=== PATIENT | female | born 1985 | race Caucasian/White ===

== ENCOUNTER → 2020-07-20 10:18 | Outpatient (CLI) | payer BC | END | disposition home or self-care (01) | LOC: D.LAB 10:18 | DX: Z32.00 Encounter for pregnancy test, result unknown (principal) ==

== ENCOUNTER → 2020-07-22 09:36 | Outpatient (CLI) | payer BC | END | disposition home or self-care (01) | LOC: D.LAB 09:34 | DX: Z32.00 Encounter for pregnancy test, result unknown (principal) ==

== ENCOUNTER → 2020-07-28 08:06 | Outpatient (CLI) | payer BC | END | disposition home or self-care (01) | LOC: D.LAB 08:06 | DX: Z32.00 Encounter for pregnancy test, result unknown (principal) ==

== ENCOUNTER 2021-02-10 09:52 | Outpatient (CLI) | payer BC ==
[2021-02-10] MEDS ORDERED: ZYRTEC10 MG PO (09:58)
[2021-02-10] MEDS ORDERED: PROTONIX40 MG PO (10:02)
== END 2021-02-10 10:27 | disposition home or self-care (01) ==
LOC: D.LDO 09:52
PROVIDERS: ATTEND Student in an Organized Health Care Education/Training Program
DX: O35.9XX0 Maternal care for (suspected) fetal abnormality and damage, unspecified, not applicable or unspecified (principal)

== ENCOUNTER → 2021-02-15 14:02 | Outpatient (CLI) | payer BC ==
[~2021-02-15 14:02] MED LIST: PROTONIX40 MG PO; ZYRTEC10 MG PO
== END | disposition home or self-care (01) ==
LOC: D.LDO 14:02
PROVIDERS: ATTEND Student in an Organized Health Care Education/Training Program
DX: O26.899 Other specified pregnancy related conditions, unspecified trimester (principal)

== ENCOUNTER 2021-02-22 09:00 | Outpatient (CLI) | payer BC | END 2021-02-22 09:45 | disposition home or self-care (01) | LOC: D.LDO 09:00 | PROVIDERS: ATTEND Student in an Organized Health Care Education/Training Program | DX: O35.9XX0 Maternal care for (suspected) fetal abnormality and damage, unspecified, not applicable or unspecified (principal) ==

== ENCOUNTER 2021-03-01 08:25 | Outpatient (CLI) | payer BC | END 2021-03-01 09:10 | disposition home or self-care (01) | LOC: D.LDO 08:25 | PROVIDERS: ATTEND Student in an Organized Health Care Education/Training Program | DX: O35.9XX0 Maternal care for (suspected) fetal abnormality and damage, unspecified, not applicable or unspecified (principal) ==

== ENCOUNTER 2021-03-08 10:10 | Outpatient (CLI) | payer BC | END 2021-03-08 11:17 | disposition home or self-care (01) | LOC: D.LDO 10:10 | PROVIDERS: ATTEND Student in an Organized Health Care Education/Training Program | DX: O35.9XX0 Maternal care for (suspected) fetal abnormality and damage, unspecified, not applicable or unspecified (principal) ==

== ENCOUNTER 2021-03-10 06:03 | Inpatient (IN) | payer BC ==
[2021-03-10] VITALS (13 sets, daily range): BP systolic 103–142; BP diastolic 50–72; Ht 160 cm; Wt 71.7 kg
[~2021-03-10] VITALS: Ht 160 cm; Wt 71.7 kg
[2021-03-10 06:51] LABS: HEMATOCRIT 33.5 % (36.0-48.0); HEMOGLOBIN 10.8 g/dL (12-16); MCH 25.5 pg (26.0-34.0); MCHC 32.2 g/dL (31.0-37.0); MCV 79.2 fL (80.0-100.0); MEAN PLATELET VOLUME 12.2 fL (7.4-10.4); RBC 4.23 10x6/uL (4.00-5.40); WBC 8.8 10x3/uL (4.8-10.8)
[2021-03-10 06:59] LABS: UDS - AMPHET NEGATIVE QUAL (NEGATIVE); UDS - BARB NEGATIVE QUAL (NEGATIVE); UDS - BENZO NEGATIVE QUAL (NEGATIVE); UDS - COCAINE NEGATIVE QUAL (NEGATIVE); UDS - OPIATE NEGATIVE QUAL (NEGATIVE); UDS - PCP NEGATIVE QUAL (NEGATIVE); UDS - THC NEGATIVE QUAL (NEGATIVE)
[2021-03-10 07:00] LABS: BILIRUBIN NEGATIVE (NEGATIVE); KETONE 1+ mg/dL (NEGATIVE); NITRITE NEGATIVE (NEGATIVE); UROBILINOGEN NORMAL mg/dL (< 2)
--- NOTE | 2021-03-10 09:42 | NUR ---
REC'D TO ROOM FROM PACU AA&OX4. VSS. FUNDUS BOGGY MIDLINE AND U1, 3 HALF DOLLAR SIZED CLOTS EXPRESSED WITH MASSAGE AND FUNDUS FIRMED FOLLOWING CLOT EXPULATION AND MASSAGE. RESP REGULAR AND UNLABORED, NO S/S OF DISTRESS NOTED. BREATH SOUNDS CLEAR AND EQUAL BILATERALLY. BOWELS SOUNDS HYPOACTIVE X4. LOWER TRANSVERSE ABD INCISION WELL APPROXIMATED WITH GLUE INTACT. NO DRAINAGE NOTED. TENORIO DRAINING TO BEDSIDE DRAINAGE SYSTEM, STAT LOCK PLACED, 300 MLS CLEAR LIGHT YELLOW URINE EMPTIED. SCD'S ON BLE. 1+ BLE EDEMA NOTED. INCENTIVE SPIROMETER PROVIDED, EDUCATED ON USE WITH RETURN DEMO X10 WITH GOOD EFFORT. ICE PACK PROVIDED. PERICARE DONE, TOWELS PADS AND CHUX CHANGED. POC DISCUSSED WITH PT AND SPOUSE. UPDATED ON INFANT STATUS PER NBN STAFF. BED IN LOW POSITION WITH SRUP X2. CALL LIGHT AND PHONE WITHIN REACH. WILL CONTINUE TO MONITOR. O
--- NOTE | 2021-03-10 09:57 | NUR ---
VSS. FUNDUS FIRM, MIDLINE AND U2 WITH SMALL AMT RUBRA LOCHIA, NO CLOTS NOTED.
--- NOTE | 2021-03-10 10:49 | NUR ---
NICU TRANSPORT TO BEDSIDE WITH INFANT FOR PT VIEWING AND BRIEF BONDING.
--- NOTE | 2021-03-10 11:24 | NUR ---
C/O ABD AND INCISIONAL DISCOMFORT, MEDICATED PER EMAR. FUNDUS BOGGY BUT FIRMS WITH MASSAGE, SMALL TO MODERATE AMT RUBRA LOCHIA NOTED, NO CLOTS. VSS. DENIES NEEDS. SPOUSE AT BEDSIDE, SUPPORTIVE AND ATTENTIVE TO PT NEEDS. BED IN LOW POSITION WITH SRUP X2. CALL LIGHT AND PHONE WITHIN REACH. I&O DONE PER FLOWSHEET.
--- NOTE | 2021-03-10 11:36 | NUR ---
CALLS VIA CALL LIGHT C/O NAUSEA. ZOFRAN GIVEN PER ORDER AND PT REQUEST. 50 MLS EMESIS NOTED IN EMESIS BAG. SPOUSE REMAINS AT BEDSIDE, SUPPORTIVE AND ATTENTIVE. BED IN LOW POSITION WITH SRUP X2. CALL LIGHT AND PHONE WITHIN REACH.
--- NOTE | 2021-03-10 11:54 | NUR ---
PAIN REASSESSMENT DONE. DENIES PAIN AND NEEDS.
[2021-03-10 12:12] LABS: BASOPHILS 0.1 % (0-2); EOSINOPHILS 0.1 % (0-7); HEMATOCRIT 27.5 % (36.0-48.0); HEMOGLOBIN 8.8 g/dL (12-16); IMMATURE GRANULOCYTES 0.5 % (0-5); LYMPHOCYTE ABS# 1.31 10x3/uL (1.18-3.74); LYMPHOCYTES 12.3 % (15-50); MCH 25.3 pg (26.0-34.0); MEAN PLATELET VOLUME 11.6 fL (7.4-10.4); MONOCYTES 6.6 % (2-11); NEUTROPHIL ABS# 8.54 10x3/uL (1.56-6.13); NEUTROPHILS 80.4 % (40-80); PLATELET COUNT 194 10x3/uL (130-400); RBC 3.48 10x6/uL (4.00-5.40); RDW 12.8 % (11.5-14.5); WBC 10.6 10x3/uL (4.8-10.8)
--- NOTE | 2021-03-10 13:41 | NUR ---
BREAST PUMP PROVIDED AND INSTRUCTED ON USE, DEMONSTRATES UNDERSTANDING. PERICARE DONE. VSS. FUNDUS FIRM, MIDLINE AND U2 WITH SMALL AMT RUBRA LOCHIA, NO CLOTS NOTED. PAIN 1-2/10, DENIES NEED FOR INTERVENTION AT THIS TIME. SCD'S ON BLE. INCENTIVE SPIROMETER DONE X10 WITH GOOD EFFORT. ICE WATER, SPRITE, AND CHICKEN BROTH PROVIDED. PT REPORTS OCCASIONAL "WAVES" OF NAUSEA CONTINUING. BED IN LOW POSITION WITH SRUP X2. CALL LIGHT AND PHONE WITHIN REACH.
--- NOTE | 2021-03-10 14:51 | NUR ---
VSS. FUNDUS FIRM, MIDLINE AND U2 WITH SMALL AMT RUBRA LOCHIA, NO CLOTS NOTED. C/O ABD AND INCISIONAL DISCOMFORT. TORADOL GIVEN. PAIN REGIMAN DISCUSSED WITH PT, REQUESTS ZOFRAN WHEN AVAILABLE THEN TO TRANSITION TO PO MEDS. EBM LABELED AND STORED. DENIES ADDITIONAL NEEDS.
--- NOTE | 2021-03-10 15:34 | NUR ---
VSS. PAIN NOW 2-02/08. ZOFRAN GIVEN PER ORDER. DENIES ADDITIONAL NEEDS. WATCHING ON VIDEO FEED. BED IN LOW POSITION WITH SRUP X2. CALL LIGHT AND PHONE WITHIN REACH.
--- NOTE | 2021-03-10 16:28 | NUR ---
PUMPING AT THIS TIME. C/O ABD CRAMPING AND INCISIONAL DISCOMFORT, MEDICATED PER EMAR. PT REQUESTS PO MEDS, STATING "I THINK THE IV STUFF MADE ME NAUSEATED AND I FEEL A LOT BETTER RIGHT NOW SINCE THE LAST DOSE OF ZOFRAN." FF, MIDLINE AND U2 WITH SCANT RUBRA LOCHIA, NO CLOTS NOTED. ASSISTANCE PROVIDED WITH PUMPING D/T POOR SEAL. DENIES ADDITIONAL NEEDS. CONTINUES TO WATCH INFANT ON VIDEO FEED VIA HER CELL PHONE. POC DISCUSSED AND PT REQUEST TENORIO BE D/C'D WHEN SHE COMPLETED PUMPING. BED IN LOW POSITION WITH SRUP X2. CALL LIGHT AND PHONE WITHIN REACH.
--- NOTE | 2021-03-10 17:34 | NUR ---
CONVERSING ON CELL PHONE. PAIN 03/11. STATES THAT SHE WILL CALL VIA CALL LIGHT WHEN DONE FOR TENORIO REMOVAL. DENIES NEEDS. BED IN LOW POSITION WITH SRUP X2. CALL LIGHT AND PHONE WITHIN REACH.
--- NOTE | 2021-03-10 18:04 | NUR ---
CALLS VIA CALL LIGHT. TENORIO D/C'D WITH 310 MLS YELLOW URINE PRESENT. UP TO BR. PERICARE DONE PER PT, PADS AND PANTIES APPLIED. GOWN CHANGED. PERSONAL ABD BINDER PLACED PER PT REQUEST. L A/C PIV SL. ORAL CARE PER PT. STEADY GAIT NOTED. BACK TO BED. SCD'S ON. BED IN LOW POSITION WITH SRUP X2. CALL LIGHT AND PHONE WITHIN REACH. EBM LABELED AND STORED.
--- NOTE | 2021-03-10 19:14 | NUR ---
PT AAOX4, VSS, AFEBRILE, ALERT AND CONVERSANT, SMILING, REVIEWED POC THIS PM; PM ASSESSMENT COMPLETED. C/L AND ALL PERSONAL BELONGINGS WITHIN EASY REACH, SR UP X2, BED IN LOW POSITION, SCDS ON AND FUNCTIONING TO B LE, LEFT A/C SL INTACT AND SECURED WITH CLEAR TAPE, ALL QUESTIONS ANSWERED WITH PT STATING UNDERSTANDING. ENCOURAGED TO NOTIFY THIS RN WHEN NEEDING TO GET OOB TO BR. WILL MONITOR.
--- NOTE | 2021-03-10 20:00 | NUR ---
PT ASSISTED OOB TO BR, VOIDED 300ML URINE TO SPECIPAN, REVIEWED PERICARE INSTRUCTIONS WITH PT DEMONSTRATING PROPER TECHNIQUE; NOW AMBULATORY IN HALLS WITH SPOUSE FOR SUPPORT, NAD NOTED. WILL MONITOR.
--- NOTE | 2021-03-10 20:52 | NUR ---
DR VELASQUEZ NOTIFIED WITH PT REQUEST OR PRN SLEEP MED TONIGHT; ORDERS RECEIVED AND NOTED.
--- NOTE | 2021-03-10 21:15 | NUR ---
PT OOB TO BR, VOIDED 900ML PALE YELLOW URINE, PERICARE PER PT, ASSISTED BACK TO BED, DENIES NEEDS/CONCERNS, WILL MONITOR.
--- NOTE | 2021-03-10 22:00 | NUR ---
ROUNDS COMPLETED, PAIN REASSESSMENT DONE, PT DENIES CONCERNS/NEEDS AT PRESENT, PT OOB TO BR, STEADY GAIT, SAFETY PRECAUTIONS REVIEWED WITH PT, PT STATES UNDERSTANDING. NO CHANGE FROM PM ASSESSMENT, WILL MONITOR.
--- NOTE | 2021-03-10 23:32 | NUR ---
ROUNDS COMPLETED, PRN HS MED GIVEN REQUESTED PER PT, ASSISTED OOB TO BR, VOIDS QS WITHOUT DIFFICULTY, LOCHIA RUBRA SCANT WITH NO CLOTS, VSS, AFEBRILE, REVIEWED POC THIS PM, PT STATES UNDERSTANDING, C/L IN EASY REACH OF PT, SR UP X2 BED IN LOW POSITION, BED BRAKES LOCKED, CUPS OF ICE AND ICE WATER PROVIDED REQUESTED, NO OTHER NEEDS VOICED. WILL MONITOR.
--- NOTE | 2021-03-11 01:30 | NUR ---
ROUNDS COMPLETED, PT RESTING WITH EYES CLOSED, RESP EVEN AND UNLABORED, NAD NOTED, WILL CONTINUE TO MONITOR.
[2021-03-11 03:06] VITALS: BP 119/56
--- NOTE | 2021-03-11 03:06 | NUR ---
ROUNDS COMPLETED, PT ROUSED PER PT INSTRUCTIONS FOR BREASTPUMPING; PT ASSISTED OOB TO BR, VOIDS QS WITHOUT DIFFICULTY, LOCHIA SCANT AMOUNT, PERICARE PER PT, ASSISTED IN BED, SCD'S REAPPLIED B LE, VSS, AFEBRILE, ICE PACK OVERLAY TO INCISION SITE REFRESHED, HOB ELEVATED 45 DEGREES, CURRENTLY USING BREAST PUMP WITHOUT DIFFICULTY, NO OTHER NEEDS AT THIS TIME, C/L IN EASY REACH, WILL CONTINUE TO MONITOR.
--- NOTE | 2021-03-11 05:45 | NUR ---
ROUNDS COMPLETED, PT RESTING WITH EYES CLOSED, RESP EVEN AND UNLABORED, C/L IN EASY REACH OF PT, NAD NOTED. WILL CONTINUE TO MONITOR.
--- NOTE | 2021-03-11 05:58 | NUR ---
[employer] HERE TO DRAW AM LABS.
--- NOTE | 2021-03-11 06:39 | NUR ---
ROUNDS COMPLETED, PT ROUSED PER HER REQUEST FOR PUMPING BREASTS, PT ASSISTED WITH SETUP, NO OTHER NEEDS VOICED AT THIS TIME, WILL CONTINUE TO MONITOR.
[2021-03-11 06:50] LABS: BASOPHILS 0.2 % (0-2); EOSINOPHILS 0.1 % (0-7); HEMATOCRIT 27.9 % (36.0-48.0); HEMOGLOBIN 8.8 g/dL (12-16); IMMATURE GRANULOCYTES 0.4 % (0-5); LYMPHOCYTE ABS# 1.01 10x3/uL (1.18-3.74); LYMPHOCYTES 12.4 % (15-50); MCH 25.2 pg (26.0-34.0); MCHC 31.5 g/dL (31.0-37.0); MCV 79.9 fL (80.0-100.0); MEAN PLATELET VOLUME 12.1 fL (7.4-10.4); MONOCYTES 8.8 % (2-11); NEUTROPHIL ABS# 6.36 10x3/uL (1.56-6.13); NEUTROPHILS 78.1 % (40-80); PLATELET COUNT 211 10x3/uL (130-400); RBC 3.49 10x6/uL (4.00-5.40); RDW 12.9 % (11.5-14.5); WBC 8.2 10x3/uL (4.8-10.8)
--- NOTE | 2021-03-11 07:02 | NUR ---
TO BEDSIDE FOR BEDSIDE REPORT. PT RESTING QUIETLY WITH EYES CLOSED IN SEMI FOWLERS POSITION. RESP REGULAR AND UNLABORED, NO S/S OF DISTRESS NOTED. PT NOT DISTURBED TO ALLOW FOR REST. BED IN LOW POSITION WITH SRUP X2. CALL LIGHT AND PHONE WITHIN REACH.
[2021-03-11 07:14] LABS: RAPID PLASMA REAGIN Non Reactive (Non Reactive)
[2021-03-11 07:30] VITALS: BP 115/71
--- NOTE | 2021-03-11 07:30 | NUR ---
PATIENT ASSESSSMENT COMPLETED AT BEDSIDE. PATIENT COMPLAINS OF PAIN 5/10. PATIENT STATES THAT INCISION FEELS WARM BUT THIS COULD BE DUE TO HER WALKING ALL NIGHT. INCISION COVERED WITH STERI-STRIPS, CLEAN AND DRY. FUNDUS FIRM AND MIDLINE AND U -1. BLEEDING, SCANT. RIGHT ARM PIV SALINED LOCKED. SIDE RAILS UP X2, BED IN LOW POSITION, CALL LIGHT WITHIN REACH.
[2021-03-11 08:33] VITALS: BP 107/68
--- NOTE | 2021-03-11 08:33 | NUR ---
SHIFT ASSESSMENT COMPLETED PER FLOWSHEET. VSS. FF, MIDLINE AND U2 WITH SCANT RUBRA LOCHIA, NO CLOTS NOTED. REPORTS THAT SHE IS VOIDING WITHOUT DIFFICULTY AND PASSING FLATUS, HOWEVER FEELS LIKES SHE NEEDS TO PASS MORE FLATUS. ENCOURAGED AMBULATION. PRUNE JUICE ALSO PROVIDED. LOWER TRANSVERSE ABD INCISION WELL APPROXIMATED, GLUE INTACT, NO DRAINAGE NOTED. INSTRUCTED ON INCISIONAL CARE AND S/S OF INFECTION, VERBALIZES UNDERSTANDING. POC DISCUSSED, VERBALIZES UNDERSTANDING. SCD'S ON BLE. DENIES ADDITIONAL NEEDS. MEDICATED PER EMAR FOR INCISIONAL AND ABD DISCOMFORT. BED IN LOW POSITION WITH SRUP X2. CALL LIGHT AND PHONE WITHIN REACH.
--- NOTE | 2021-03-11 09:24 | NUR ---
PUMPING BREASTMILK AT THIS TIME. DENIES NEEDS. PAIN 2-02/08.
--- NOTE | 2021-03-11 10:34 | NUR ---
EBM LABELED AND STORED PER PT REQUEST. DENIES PAIN AND NEEDS. CONVERSING ON CELL PHONE. BED IN LOW POSITION WITH SRUP X2. CALL LIGHT AND PHONE WITHIN REACH.
--- NOTE | 2021-03-11 11:21 | NUR ---
AMBULATORY ON UNIT. STEADY GAIT NOTED. DENIES PAIN AND NEEDS AT THIS TIME.
[2021-03-11] MEDS ORDERED: PERCOCET 10-321 EAC1 PO (11:37)
[2021-03-11] MEDS ORDERED: IBUPROFEN600 MG PO (11:37)
[2021-03-11 12:29] VITALS: BP 128/67
--- NOTE | 2021-03-11 12:29 | NUR ---
VSS. FUNDUS FIRM, MIDLINE AND U2 WITH SCANT RUBRA LOCHIA, NO CLOTS NOTED. PRUNE JUICE PROVIDED. PT REPORTS PASSING MORE FLATUS SINCE HAVING PRUNE JUICE EARILER. ICE WATER PROVIDED. PT PUMPING AT THIS TIME. DENIES ADDITIONAL NEEDS. BED IN LOW POSITIONS WITH SRUP X2. CALL LIGHT AND PHONE WITHIN REACH.
--- NOTE | 2021-03-11 13:27 | NUR ---
SPOUSE AT BEDSIDE. EBM PROVIDED TO SPOUSE TO TAKE TO NICU. PT DENIES NEEDS AT THIS TIME. ICE WATER PROVIDED. BED IN LOW POSITION WITH SRUP X2. CALL LIGHT AND PHONE WITHIN REACH.
--- NOTE | 2021-03-11 14:31 | NUR ---
AMBULATORY IN ROOM. C/O ABD AND INCISIONAL DISCOMFORT, MEDICATED PER EMAR. SHOWER DONE AT THIS, INSTRUCTED ON INCISIONAL CARE AND USE OF CHG. CHG SOAP PROVIDED AND USED PER PT. LINEN CHANGE DONE. DENIES NEEDS. BED IN LOW POSITION WITH SRUP X2. CALL LIGHT AND PHONE WITHIN REACH.
--- NOTE | 2021-03-11 15:14 | NUR ---
WATCHING ON CELL PHONE VIA VIDEO FEED. PAIN 2-02/08. SPRITE PROVIDED. DENIES ADDITIONAL NEEDS. BED IN LOW POSITION WITH SRUP X2. CALL LIGHT AND PHONE WITHIN REACH.
--- NOTE | 2021-03-11 16:42 | NUR ---
RESTING WITH EYES CLOSED LAYING ON R SIDE, RESP REGULAR AND UNLABORED, NO S/S OF DISTRESS NOTED. BED IN LOW POSITION WITH SRUP X2. CALL LIGHT AND PHONE WITHIN REACH.
[2021-03-11 17:51] VITALS: BP 118/67
--- NOTE | 2021-03-11 17:51 | NUR ---
ICE WATER, PRUNE JUICE, AND SPRITE PROVIDED. DENIES ADDITIONAL NEEDS. CONVERSING WITH SPOUSE. SPOUSE SUPPORTIVE AND ATTENTIVE. VSS. FF, MIDLINE AND U2, SCANT RUBRA LOCHIA, NO CLOTS. BED IN LOW POSITION WITH SRUP X2. CALL LIGHT AND PHONE WITHIN REACH.
[2021-03-11 19:25] VITALS: BP 130/72
--- NOTE | 2021-03-11 20:32 | NUR ---
ROUNDS COMPLETED, PT C/O INCISONAL PAIN REQUESTING BOTH TORADOL AND PERCOCET, SAME PROVIDED. REFRESHED ICE PACK OVERLAY, HS SNACK TRAY AND CUP OF ICE PROVIDED UPON REQUEST, NO OTHER NEEDS AT THIS TIME, C/L IN EASY REACH, SR UP X2, BED IN LOW POSITION, PERSONAL BELONGINGS PLACED WITHIN EASY REACH, NAD NOTED. CONTINUE TO MONITOR.
--- NOTE | 2021-03-11 21:15 | NUR ---
ROUNDS COMPLETED, NAD NOTED, DENIES NEEDS/CONCERNS, CONTINUE TO MONITOR.
--- NOTE | 2021-03-11 22:56 | NUR ---
ROUNDS COMPLETED, PT AMBULATORY IN ROOM, SPOUSE PRESENT FOR SUPPORT, REQUESTS PRN SLEEP MED, SAME PROVIDED. REVIEWED POC THIS PM, PT REQUESTS WAKENING AROUND 3 AM FOR BREAST PUMP INITIATION, REASSURED PT WILL ATTEMPT TO DO SO REQUESTED. C/L IN EASY REACH, BED IN LOW POSITION, BED BRAKES LOCKED, WILL MONITOR.
--- NOTE | 2021-03-12 01:20 | NUR ---
ROUNDS COMPLETED, PT REQUESTING ADDITIONAL BLANKET AND ROOM TEMP ADJUSTMENT AFTER GETTING UP TO BR FOR VOID, SAME PROVIDED. NO OTHER NEEDS AT THIS TIME, NAD NOTED, WILL MONITOR. C/L IN EASY REACH, BED IN LOW POSITION, BED BRAKES LOCKED.
--- NOTE | 2021-03-12 03:05 | NUR ---
ROUNDS COMPLETED, UP TO BR WITH ASSIST, RESP EVEN AND UNLABORED, PRN PAIN MEDS GIVEN REQUESTED, NO OTHER NEEDS AT THIS TIME, CONTINUE TO MONITOR.
--- NOTE | 2021-03-12 05:10 | NUR ---
ROUNDS COMPLETED, PT RESTING WITH EYES CLOSED, NAD NOTED, CONTINUE TO MONITOR.
--- NOTE | 2021-03-12 06:43 | NUR ---
REPORT TO ONCOMING SHIFT.
--- NOTE | 2021-03-12 08:04 | NUR ---
CALLS VIA CALL LIGHT. SITTING IN HIGH FOWLERS POSITION EATING BREAKFAST TRAY. ICE WATER AND ICE CHIPS PROVIDED. DENIES ADDITIONAL NEEDS. SPOUSE AT BEDSIDE, SUPPORTIVE AND ATTENTIVE. POC DISCUSSED, VERBALIZES UNDERSTANDING. BED IN LOW POSITION WITH SRUP X2. CALL LIGHT AND PHONE WITHIN REACH.
--- NOTE | 2021-03-12 08:37 | NUR ---
PUMPING AT THIS TIME. DENIES NEEDS. INSTRUCTED TO CALL RN VIA CALL LIGHT WHEN PUMPING COMPLETED, VERBALIZES UNDERSTANDING. SPOUSE REMAINS AT BEDSIDE, SUPPORTIVE AND ATTENTIVE. BED IN LOW POSITION WITH SRUP X2. CALL LIGHT AND PHONE WITHIN REACH.
[2021-03-12 09:24] VITALS: BP 120/72
--- NOTE | 2021-03-12 09:24 | NUR ---
SHIFT ASSESSMENT COMPLETED PER FLOWSHEET. VSS. FF, MIDLINE AND U2 WITH SCANT RUBRA LOCHIA, NO CLOTS NOTED. LOWER TRANSVERSE ABD INCISION WELL APPROXIMATED, GLUE INTACT, NO DRAINAGE NOTED. REPORTS THAT SHE IS VOIDING AND PASSING FLATUS WITHOUT DIFFICULTY. POC DISCUSSED. MEDICATED PER EMAR. DENIES ADDITIONAL NEEDES.
--- NOTE | 2021-03-12 10:16 | NUR ---
PAIN REASSESSMENT COMPLETED, 01/11. DENIES NEEDS.
--- NOTE | 2021-03-12 11:16 | NUR ---
MMR OFFERED AND REFUSED PER PT. BLOOD TYPE O NEG ALSO, NO NEED FOR RHOGAM.
--- NOTE | 2021-03-12 11:41 | NUR ---
VERBAL AND WRITTEN D/C INSTRUCTION PROVIDED. PRESCRIPTIONS PROVIDED. COPIES PFW PP CARE INSTRUCTIONS, [employer], S[employer] YOUR LIFE HANDOUT PROVIDED. VERBALIZES UNDERSTANDING AND DENIES QUESTIONS. UP TO DRESS.
--- NOTE | 2021-03-12 12:31 | NUR ---
OFF UNIT VIA W/C TRANSPORT TO AWAITING CAR IN STABLE CONDITION.
== END 2021-03-12 12:31 | disposition home or self-care (01) | DRG 786 ==
LOC: D.LDO 06:03 → D.LD 06:50
PROVIDERS: ADMIT Obstetrics & Gynecology; ATTEND Obstetrics & Gynecology
PROC: 10D00Z1 Extraction of Products of Conception, Low, Open Approach (ICD-10-PCS; principal; 2021-03-10 07:30)
DX: O32.1XX0 Maternal care for breech presentation, not applicable or unspecified (principal); O60.14X0 Preterm labor third trimester with preterm delivery third trimester, not applicable or unspecified; Z3A.36 36 weeks gestation of pregnancy; Z37.0 Single live birth